=== PATIENT | female | born 1955 | race Caucasian/White ===

== ENCOUNTER → 2018-07-05 | Outpatient (CLI) | payer BC ==
[~2018-07-05] MED LIST: ATIVAN0.5 MG PO; CELEXA20 MG PO; COLACE100 MG PO; KEFLEX500 M1 PO; NORCO 5-325 TA1 EACH PO; ONDANSETRON HCL4 M2 PO; SENOKOT-S1 TA1 PO; VALIUM5 MG PO
== END ==
LOC: NUC 09:49
DX: M85.89 Other specified disorders of bone density and structure, multiple sites (principal); M81.8 Other osteoporosis without current pathological fracture; T38.6X5A Adverse effect of antigonadotrophins, antiestrogens, antiandrogens, not elsewhere classified, initial encounter; Z78.0 Asymptomatic menopausal state

== ENCOUNTER 2019-10-29 14:48 | Emergency (ER) | payer OTHER, MEDICARE ==
[~2019-10-29] VITALS: Ht 160 cm; Wt 72.6 kg
[2019-10-29 16:37] VITALS: BP 132/83
== END 2019-10-29 16:38 | disposition home or self-care (01) ==
LOC: ER 14:48
DX: L76.22 Postprocedural hemorrhage of skin and subcutaneous tissue following other procedure (principal); L76.34 Postprocedural seroma of skin and subcutaneous tissue following other procedure; Z88.8 Allergy status to other drugs, medicaments and biological substances; Z98.890 Other specified postprocedural states; Z85.3 Personal history of malignant neoplasm of breast

== ENCOUNTER 2020-07-09 10:40 | Observation (INO) | payer OTHER, MEDICARE ==
[2020-06-30 11:18] LABS: HEMATOCRIT 40.7 % (37.0-47.0); HEMOGLOBIN 13.7 gm/dL (12.0-15.0); MCH 31.3 pg (26.0-34.0); MCHC 33.7 g/dL (28.0-37.0); MCV 92.9 fL (80.0-100.0); RBC 4.38 mil/uL (4.20-5.00); RDW 13.9 % (10.5-14.5); WBC 4.9 thou/uL (4.0-11.0)
[2020-06-30 11:20] LABS: URINE BILIRUBIN NEGATIVE (Negative); URINE BLOOD TRACE (Negative); URINE CLARITY CLEAR; URINE COLOR YELLOW; URINE GLUCOSE-RANDOM* NEGATIVE (Negative); URINE KETONES NEGATIVE (Negative); URINE LEUKOCYTES-REFLEX NEGATIVE (Negative); URINE NITRITE-REFLEX NEGATIVE (Negative); URINE PROTEIN (DIPSTICK) NEGATIVE (Negative); URINE SPECIFIC GRAVITY <= 1.005 (1.005-1.035); URINE UROBILINOGEN 0.2 E.U./dl (0.2-1.0)
[2020-06-30 11:21] LABS: ALBUMIN 4.1 g/dL (3.4-5.0); CALCIUM 9.1 mg/dL (8.5-10.1); CREATININE 0.8 mg/dL (0.6-1.0); POTASSIUM 4.4 mmol/L (3.5-5.1)
[2020-06-30 11:27] LABS: PROTIME 9.8 Seconds (9.3-11.4)
--- NOTE | 2020-06-30 14:27 | EKG ---
[facility] [place] [address] ELECTROCARDIOGRAM REPORT Name: EVELYN CASTILLO Room #: PRE [facility]..#: [id number] Admission: Attend Phys: Tomi Roy MD Discharge: Date of : 53 Report #: [id number] THIS REPORT FOR: cc: Anay Wu MD, Nora P. MD Couchonnal, Luis F. MD ~ THIS REPORT FOR: //name// [facility] Test Date: 2020-06-30 Test Time: 10:28:49 Pat Name: EVELYN CASTILLO Department: Room: Gender: F Farm Equipment Service Technician: AMBROCIO : 1955 Requested By: Tomi Roy Order Number: [id number] MD: Low Lepe Measurements Intervals [place] Rate: 67 P: 28 FL: 155 QRS: -23 QRSD: 92 T: 15 QT: 423 QTc: 447 Interpretive Statements Sinus rhythm Borderline left axis deviation Compared to ECG 05/21/2014 10:50:40 No significant changes Electronically Signed On 06-30-2020 14:27:05 CDT by Low Lepe [email or web address] <ELECTRONICALLY SIGNED> By: Low Lepe MD 06/30/20 1427 1028 1028 Low Lepe MD /EPI
[~2020-07-09] VITALS: Ht 160 cm; Wt 73.5 kg
[~2020-07-09 10:40] MED LIST changes: +ESCITALOPRAM OX10 MG PO; +MELOXICAM15 MG PO; +ZOLPIDEM TARTRA10 MG PO
[2020-07-09 11:30] VITALS: BP 134/80
[2020-07-09] MEDS ORDERED: MUPIROCIN22 GM (18:38)
[2020-07-09] MEDS ORDERED: NEURONTIN 300M300 M2 PO (18:40)
[2020-07-09 19:30] VITALS: BP 132/85
[2020-07-10] VITALS (7 sets, daily range): BP systolic 115–126; BP diastolic 64–86
--- NOTE | 2020-07-10 02:51 | NUR ---
NOC: ASSESSED AT START OF SHIFT 1900. PT A NEW POST OP PT FROM PACU @1610. VITAL SIGNS DONE, PT STABLE. ADMISSION DONE AND PT OREINTED TO THE UNIT. IV INTACT AND FLUIDS STARTED. HORACIO DRESSING, POLAR PACK AND DARCIE HOSE IN PLACE. PT UP WITH ASSISTX1 TO THE BATHROOM, AMBULATING WELL. FALL PREC IN PLACE AND CALL LIGHT IN REACH WILL CONT TO MONITOR.
[2020-07-10 06:45] LABS: HEMATOCRIT 34.4 % (37.0-47.0); HEMOGLOBIN 11.5 gm/dL (12.0-15.0); MCH 31.2 pg (26.0-34.0); MCHC 33.3 g/dL (28.0-37.0); MCV 93.6 fL (80.0-100.0); RBC 3.67 mil/uL (4.20-5.00); WBC 10.6 thou/uL (4.0-11.0)
--- NOTE | 2020-07-10 10:11 | NUR ---
PT CARE ASSUMED AT 0700.A&Ox4. PT UP TO THE BATHROOM AND NOW SITTING IN THE RECLINER. PAIN MANAGED WELL WITH PAIN MEDICATION ON BOARD. IV PATENT WITH NO REDNESS OR EDEMA, FLUIDS INFUSING. LATEX ALLERGY,SIGN ON DOOR. FALL PROTOCOL IN PLACE. CALL LIGHT IN REACH. POLARPACK,SCD'S/DARCIE HOSES IN PLACE. PT UP IN TH ERECLINER FOR BREAKFAST AND AWAITING PT. WILL CONTINUE TO MONITOR.
[2020-07-10] MEDS ORDERED: HYDROCODON-ACE1 EAC7 PO (15:51)
[2020-07-10] MEDS ORDERED: MS CONTIN15 MG PO (15:52)
[2020-07-10] MEDS ORDERED: ASPIR 8181 MG PO (15:54)
--- NOTE | 2020-07-10 16:06 | NUR ---
ASSESSMENT: CM REVIEWED CHart and spoke with patient. pt is here due to R TKA. PT REPORTS SHE LIVES IN A HOUSE WITH HER . PT REPORTS BEING FULLY INDEPENDENT WITH ADLS AND AMBULATION. CM SPOKE WITH PHYSICAL THERAPY WHO REPORTS THAT PATIENT WILL NEED A WALKER AT DISCHARGE. CM SPOKE WITH PATIENT WHO HAS NO PREFERENCE OF DME COMPANY. PROVIDER TERI IS ABLE TO PROVIDE WALKER FOR PATIENT AND DELIVERED IT TO HER ROOM. PT REPORTS SHE HAS OUTPATIENT THERAPY ARRANGED WITH [facility] [place]. PT REPORTS NO FURTHER NEEDS FROM CM. PLANS ARE TO DISCHARGE HOME.
--- NOTE | 2020-07-14 15:50 | O ---
[facility] [place] [address] OPERATIVE REPORT Name: EVELYN CASTILLO Room #: 434-P [facility] Brendan Joseph#: [id number] Admission: 07/09/20 Attend Phys: Tomi Roy MD Discharge: 07/10/20 Date of : 53 Report #: [id number] THIS REPORT FOR: cc: Anay Wu MD, Nora P. MD Abraham,Tomi Graf MD ~ CC: Anay Roy DATE OF SERVICE: 07/09/2020 PREOPERATIVE DIAGNOSIS: Right knee osteoarthritis. POSTOPERATIVE DIAGNOSIS: Right knee osteoarthritis. PROCEDURE: Right total knee arthroplasty using Navio robotic assistant corporate secretary. SURGEON: Tomi Roy M.D. HUB CUTTER: None. ANESTHESIA: LMA. IMPLANTS: Lam and Nephew size 5 Journey II BCS Oxinium femur, a size 3 tibia, size 13 constrained polyethylene and size 29 patella. TOURNIQUET TIME: 53 minutes. ESTIMATED BLOOD LOSS: 25 mL. COMPLICATIONS: None. SPECIMENS: None. CONDITION UPON LEAVING THE OPERATING ROOM: Stable. INDICATIONS FOR PROCEDURE: The patient is a 64-year-old female with right knee osteoarthritis. She had failed conservative measures for this and after discussion with her, she elected for right total knee arthroplasty. DESCRIPTION OF PROCEDURE: Risks, benefits, alternatives, complications were discussed in detail with the patient including but not limited to risk of anesthesia, risk of damage to nerves, arteries, blood vessels, risk for infection, bleeding, risk for continued knee pain, need for reoperation. Informed consent was obtained from the patient. Right knee was appropriately marked in the preoperative holding area. IV Ancef was given for preoperative [address] [address] OPERATIVE REPORT Name: EVELYN CASTILLO Room #: 434-P [facility] Brendan Mendoza.#: [id number] Admission: 07/09/20 Attend Phys: Tomi Roy MD Discharge: 07/10/20 Date of : 53 Report #: [id number] antibiotics. Adductor canal block was placed by Anesthesia. She was brought to the operating room and placed in the supine position on the operating room table. LMA anesthesia was induced without complication. Tourniquet was placed on the right thigh. Right lower extremity was prepped and draped in normal sterile fashion. Timeout was performed properly identifying the patient and procedure as well as the instrumentation and implants. All in the operating room were in agreement. Right lower extremity was exsanguinated, tourniquet was inflated. Tourniquet time was 53 minutes. Standard midline approach to the knee was made with 10 blade through the skin. Dissection was taken down sharply to the fascia and deep flaps were developed medially and laterally. Fresh 10 blade was used to make a medial parapatellar arthrotomy and the knee was inspected. There was severe tricompartmental osteoarthritis. ACL and PCL were removed sharply. Reference pins were placed in the femur and the tibia. The knee was digitally mapped using the [employer] robotic system. Intraoperative plan was made and we sized the size 5 femur with a size 3 tibia and a size 10 spacer. After acceptance of the intraoperative plan, the distal femoral cut was made with a Navio bur. Distal femoral cutting block was pinned in place and the chamfer cuts were made. Attention was turned to the tibia. Remainder of the menisci removed with Bovie cautery. Tibial resection guide was pinned in place using the Navio for placement and tibial resection was made. After this, flexion and extension gaps were checked and found to have good balance in flexion and extension both medially and laterally. She did have some laxity laterally throughout range of motion. It was felt we could make up for this with the final implant. Tibia was sized, found to be a size 3. A size 3 tibial trial was placed, pinned and punched. A size 5 femoral trial was placed and a box cut was made. This was then trialed with a size 11 and on to a size 13 polyethylene and the size 13 polyethylene demonstrated good stability medially throughout range of motion; however, laterally, she demonstrated 2-3 mm of laxity. It was felt we could make up for this with a constrained implant. A 9 mm was resected from the posterior surface of the patella and a size 29 patellar trial button was placed. Knee was taken through range of motion, found to be stable, found to have good patellar tracking. Trial components were removed. Bony ends were thoroughly irrigated with normal saline. A final size 3 tibia, size 5 Journey II BCS Oxinium femur and a size 29 patella were cemented in place using standard cementation techniques. While the cement cured, a periarticular injection consisting of morphine, ropivacaine, epinephrine and Toradol was placed around the knee joint capsule. After the cement cured, the tourniquet was deflated. Hemostasis was obtained with Bovie cautery. Final size 13 constrained polyethylene was placed. A gram of vancomycin was placed deep in the joint. Fascia was closed with 0 Vicryl, skin was closed with 2-0 Vicryl, 3-0 Monocryl, Dermabond and a HORACIO dressing was applied. The patient tolerated [facility] [address] [place] [address] OPERATIVE REPORT Name: EVELYN CASTILLO Room #: 434-P [facility] Brendan Joseph#: [id number] Admission: 07/09/20 Attend Phys: Tomi Roy MD Discharge: 07/10/20 Date of : 53 Report #: [id number] this procedure well and went to the recovery room under care of anesthesia postoperatively. <ELECTRONICALLY SIGNED> By: Tomi Roy MD 07/14/20 1550 1742 1819 Tomi Roy MD /nt
== END 2020-07-10 16:51 | disposition home or self-care (01) ==
LOC: TBA 10:40 → OR 10:40 → TBA 10:44 → 4S 16:24 → OR 16:25 → 4S 16:25
PROVIDERS: ADMIT Orthopaedic Surgery; ATTEND Orthopaedic Surgery
DX: Z03.818 Encounter for observation for suspected exposure to other biological agents ruled out (principal); M17.11 Unilateral primary osteoarthritis, right knee; Z79.899 Other long term (current) drug therapy
CPT/HCPCS: 50010; 50101; 50415; 50954; 51130; 51225; 51320; 51412; 53000; 53078; 53365; 54118; 56527; 56528; 57095; 57103; 57110; 57127; 57180; 62110; 62900; 64042; 70005

== ENCOUNTER → 2020-11-19 | Outpatient (CLI) | payer OTHER, MEDICARE ==
[~2020-11-19] MED LIST changes: +ASPIR 8181 MG PO; +HYDROCODON-ACE1 EAC7 PO; +MS CONTIN15 MG PO; +MUPIROCIN22 GM; +NEURONTIN 300M300 M2 PO; +PERCOCET PO; +ZINC50 M2 PO
[2020-11-19 09:06] LABS: HEMATOCRIT 39.6 % (37.0-47.0); HEMOGLOBIN 13.3 gm/dL (12.0-15.0); MCH 30.3 pg (26.0-34.0); MCHC 33.6 g/dL (28.0-37.0); MCV 90.1 fL (80.0-100.0); RBC 4.4 mil/uL (4.20-5.00); RDW 14.1 % (10.5-14.5); WBC 5.3 thou/uL (4.0-11.0)
[2020-11-19 09:07] LABS: URINE BILIRUBIN NEGATIVE (Negative); URINE BLOOD NEGATIVE (Negative); URINE CLARITY CLEAR; URINE COLOR YELLOW; URINE GLUCOSE-RANDOM* NEGATIVE (Negative); URINE KETONES NEGATIVE (Negative); URINE LEUKOCYTES-REFLEX NEGATIVE (Negative); URINE NITRITE-REFLEX NEGATIVE (Negative); URINE PROTEIN (DIPSTICK) NEGATIVE (Negative); URINE UROBILINOGEN 0.2 E.U./dl (0.2-1.0)
[2020-11-19 09:15] LABS: ALBUMIN 3.8 g/dL (3.4-5.0); CALCIUM 9.1 mg/dL (8.5-10.1); CREATININE 0.9 mg/dL (0.6-1.0); POTASSIUM 4.2 mmol/L (3.5-5.1)
[2020-11-19 09:22] LABS: PROTIME 9.8 Seconds (9.3-11.4)
== END ==
LOC: LAB 09:00
PROVIDERS: ATTEND Orthopaedic Surgery
DX: Z01.818 Encounter for other preprocedural examination (principal); M17.12 Unilateral primary osteoarthritis, left knee; Z96.652 Presence of left artificial knee joint

== ENCOUNTER 2020-11-26 12:30 | Observation (INO) | payer OTHER, MEDICARE ==
[2020-11-19 09:06] LABS: HEMATOCRIT 39.6 % (37.0-47.0); HEMOGLOBIN 13.3 gm/dL (12.0-15.0); MCH 30.3 pg (26.0-34.0); MCHC 33.6 g/dL (28.0-37.0); MCV 90.1 fL (80.0-100.0); RBC 4.4 mil/uL (4.20-5.00); RDW 14.1 % (10.5-14.5); WBC 5.3 thou/uL (4.0-11.0)
[2020-11-19 09:07] LABS: URINE BILIRUBIN NEGATIVE (Negative); URINE BLOOD NEGATIVE (Negative); URINE CLARITY CLEAR; URINE COLOR YELLOW; URINE GLUCOSE-RANDOM* NEGATIVE (Negative); URINE KETONES NEGATIVE (Negative); URINE LEUKOCYTES-REFLEX NEGATIVE (Negative); URINE NITRITE-REFLEX NEGATIVE (Negative); URINE PROTEIN (DIPSTICK) NEGATIVE (Negative); URINE UROBILINOGEN 0.2 E.U./dl (0.2-1.0)
[2020-11-19 09:15] LABS: ALBUMIN 3.8 g/dL (3.4-5.0); CALCIUM 9.1 mg/dL (8.5-10.1); CREATININE 0.9 mg/dL (0.6-1.0); POTASSIUM 4.2 mmol/L (3.5-5.1)
[2020-11-19 09:22] LABS: PROTIME 9.8 Seconds (9.3-11.4)
[~2020-11-26] VITALS: Ht 152.4 cm; Wt 72.6 kg
[~2020-11-26 12:30] MED LIST changes: -PERCOCET PO
[2020-11-26 13:39] VITALS: BP 155/86
[2020-11-26 17:51] VITALS: BP 139/84
[2020-11-26 17:52] VITALS: BP 145/86
[2020-11-26 18:10] VITALS: BP 146/87
--- NOTE | 2020-11-26 18:26 | NUR ---
ASSUMED CARE AT 1710. PT IS A&O X4. PT DENIES ANY NAUSEA OR VOMITTING. PT HAS VOIDED ONCE SINCE SHIFT. PT HAS DARCIE/SCD HOSE IN [facility]. HEART AND LUNG SOUNDS ARE REGULAR. PT INFORMED THAT TYPICALLY AFTER SURGERY, HER BLOOD PRESSURE WILL DROP AND SHE FAINT. i WILL NOTE THIS TO THIS LIME KILN OPERATOR TO PASS ALONG THE MESSAGE. THE PT STATES THAT SHE KNOWS WHEN THIS WILL START TO HAPPEN. PT DENIES ANY NUMBNESS OR TINGLING.FALL PRECAUTION. CALL LIGHT WITHIN REACH. IV IS INTACT AND SHOWS NO SIGNS OF REDNESS OR SWELLING. PT WAS GIVEN HYDRO FOR PAIN PT STARTED TO FEEL PAIN. PT IS TOLERATING PAIN WELL. WILL CONTINUE TO MONITOR.
[2020-11-26 19:57] VITALS: BP 135/79
[2020-11-26 23:10] VITALS: BP 135/79
--- NOTE | 2020-11-27 04:27 | NUR ---
ASSUMED CARE OF PT AT 1900. PT IS A/O X4 AND IS UP WITH ASSISTANCE. C/O PAIN LEFT KNEE. PRN PAIN MEDICATION PROVIDED DIRECTED. C/O INSOMNIA. PRN SLEEP MEDICATION GIVEN DIRECTED. VSS. AT THIS TIME PT IS LYING IN BED AND APPEARS TO BE SLEEPING. POLAR PACK IN PLACE. ROQUEG IS C/D/I. SCD'S AND DARCIE HOSE IN PLACE. FALL PRECAUTIONS IMPLEMENTED. WILL CONTINUE TO MONTIOR.
[2020-11-27 06:03] LABS: HEMATOCRIT 33.4 % (37.0-47.0); HEMOGLOBIN 11.1 gm/dL (12.0-15.0); MCH 30.5 pg (26.0-34.0); MCHC 33.1 g/dL (28.0-37.0); MCV 91.9 fL (80.0-100.0); RBC 3.63 mil/uL (4.20-5.00); RDW 14.3 % (10.5-14.5); WBC 9.8 thou/uL (4.0-11.0)
[2020-11-27 08:16] VITALS: BP 119/77
--- NOTE | 2020-11-27 08:34 | NUR ---
ASSESSMENT: CM REVIEWED CHART AND SPOKE WITH PT. PT IS S/P LT KNEE. PT REPORTS LIVING IN A HOUSE WITH HER . PT REPORTS IT IS A SPLIT LEVEL HOME WITH ABOUT 7 STEPS WITH HANDRAILS ON EACH LEVEL. PT REPORTS THAT SHE HAS A CANE AND WALKER AT HOME TO ASSIST WITH AMBULATION. PT REPORTS SHE IS SETTING UP OUTPATIENT THERAPY. CM DISCUSSED ROLE. PT DOES NOT ANTICIPATE HAVING ANY NEEDS AT DISCHARGE. PT IS TO WORK WITH THERAPY TODAY AND POSSIBLE DISCHARGE LATER.
[2020-11-27] MEDS ORDERED: ASPIR 8181 MG PO (10:10)
[2020-11-27] MEDS ORDERED: PERCOCET PO (10:10)
[2020-11-27] MEDS ORDERED: HYDROCODON-ACE1 EAC7 PO (10:10)
[2020-11-27] MEDS ORDERED: NEURONTIN 300M300 M2 PO (10:11)
--- NOTE | 2020-11-27 10:13 | O ---
[facility] [place] [place] [address] OPERATIVE REPORT Name: EVELYN CASTILLO Room #: 439-P [facility] Jake#: [id number] Admission: 11/26/20 Attend Phys: Tomi Roy MD Discharge: Date of : 53 Report #: [id number] THIS REPORT FOR: cc: Anay Wu MD, Nora P. MD Abraham,Tomi Graf MD ~ DATE OF SERVICE: 11/26/2020 PREOPERATIVE DIAGNOSIS: Left knee osteoarthritis. POSTOPERATIVE DIAGNOSIS: Left knee osteoarthritis. PROCEDURE: Left total knee arthroplasty using Navio robotic biology laboratory assistant. SURGEON: Tomi Roy MD. AERODYNAMICS TEACHER: Viridiana Estevez PA-C. INDICATIONS FOR AERODYNAMICS TEACHER: Throughout the case, extensive retraction and manipulation of the knee was required. This was afforded to me by my biology laboratory assistant. ANESTHESIA: LMA with an adductor canal block. IMPLANTS: Lam and Nephew size 5 Journey II BCS Oxinium femur, size 3 tibia, size 12 polyethylene, size 29 patella. TOURNIQUET TIME: 54 minutes. ESTIMATED BLOOD LOSS: 25 mL. COMPLICATIONS: None. SPECIMENS: None. CONDITION UPON LEAVING THE OPERATING ROOM: Stable. INDICATIONS FOR PROCEDURE: The patient is a 65-year-old female with left knee osteoarthritis. She had failed conservative measures for this and after discussion with her, she elected for left total knee arthroplasty. DESCRIPTION OF PROCEDURE: Risks, benefits, alternatives, complications were discussed in detail with the patient including but not limited to risk of anesthesia, risk of damage to nerves, arteries, blood vessels, risk for infection, bleeding, risk for continued knee pain, need for reoperation. Informed consent was obtained from the patient. Left knee was appropriately [facility] [address] [place] [address] OPERATIVE REPORT Name: EVELYN CASTILLO Room #: 439-P [facility] Brendan Joseph#: [id number] Admission: 11/26/20 Attend Phys: Tomi Roy MD Discharge: Date of : 53 Report #: [id number] marked in the preoperative holding area. IV Ancef was given for preoperative antibiotics. She was brought to the operating room and placed in supine position on operating room table. LMA anesthesia was induced without complication. Tourniquet was placed on the left thigh. Left lower extremity was prepped and draped in normal sterile fashion. Timeout was performed properly identifying the patient and procedure as well as the instrumentation and implants. All in the operating room were in agreement. Left lower extremity was exsanguinated, tourniquet was inflated. Tourniquet time was 54 minutes. Standard midline approach to the knee was made with #10 blade through the skin. Dissection was taken down sharply to the fascia and deep flaps were developed medially and laterally. Fresh #10 blade was used to make a medial parapatellar arthrotomy and the knee was inspected. There was severe tricompartmental osteoarthritis. ACL and PCL were removed sharply. Reference pins were placed in the femur and the tibia and the knee was then digitally mapped using [employer] robotic system. Intraoperative plan was made and we sized the size 5 femur and a size 3 tibia and a size 10 spacer. After acceptance of the intraoperative plan, distal femoral cut was made with a Navio bur. Distal femoral cutting block was pinned in place and chamfer cuts were made. Attention was turned to the tibia. Remainder of the menisci removed with Bovie cautery. Tibial resection guide was pinned in place using the Navio for placement. Tibial resection was made. After this, flexion and extension gaps were then checked and found to have good balance in flexion and extension both medially and laterally. Tibia was sized, found to be a size 3. A size 3 tibial trial was placed, pinned and punched. A size 5 femoral trial was placed and the box cut was made. This was then trialed with a size 10 up to a size 12 polyethylene and size 12 polyethylene demonstrated 1-2 millimeter of laxity medially and laterally throughout range of motion of the knee. 9 mm of bone was resected from the posterior surface of the patella and a size 29 patellar trial button was placed. Knee was taken through range of motion, found to be stable, found to have good patellar tracking. Trial components were removed. Bony ends were thoroughly irrigated with normal saline and final size 3 tibia, size 5 Journey II BCS Oxinium femur and a size 29 patella were cemented in place using standard cementation techniques. While the cement cured, a periarticular injection consisting of morphine, ropivacaine, epinephrine, Toradol was placed around the knee joint capsule. After the cement cured, the tourniquet was deflated. Hemostasis was obtained with Bovie cautery. A final size 12 polyethylene was placed. A gram of vancomycin was placed deep in the joint. Fascia was closed with 0 Vicryl, skin was closed with 2-0 Vicryl, 3-0 Monocryl. Dermabond and a HORACIO dressing were applied. The patient tolerated this procedure well and went to recovery room under care of anesthesia postoperatively. <ELECTRONICALLY SIGNED> By: Tomi Roy MD 11/27/20 1013 1651 1736 Tomi Roy MD /nt
[2020-11-27 11:21] VITALS: BP 119/77
[2020-11-27 11:41] VITALS: BP 119/77
== END 2020-11-27 11:51 | disposition home or self-care (01) ==
LOC: OR 12:30 → 4S 17:25 → OR 17:27 → 4S 17:27
PROVIDERS: ADMIT Orthopaedic Surgery; ATTEND Orthopaedic Surgery
DX: M17.12 Unilateral primary osteoarthritis, left knee (principal); M17.11 Unilateral primary osteoarthritis, right knee; Z79.899 Other long term (current) drug therapy
CPT/HCPCS: 27447; S2900; 50010; 50101; 50415; 50954; 51130; 51225; 51320; 52001; 52282; 53000; 53078; 53365; 54118; 56527; 56528; 57095; 57103; 57110; 57127; 57180; 62110; 62900; 64042; 70005

== ENCOUNTER → 2021-10-30 | Outpatient (CLI) | payer OTHER, MEDICARE ==
[~2021-10-30] MED LIST changes: +PERCOCET PO
== END ==
LOC: NUC 10:07
PROVIDERS: ATTEND Family Medicine
DX: M85.88 Other specified disorders of bone density and structure, other site (principal); M81.0 Age-related osteoporosis without current pathological fracture

== ENCOUNTER → 2022-01-18 | Outpatient (CLI) | payer OTHER, MEDICARE ==
[~2022-01-18] MED LIST changes: +LEXAPRO 10 MG T10 M1 PO
== END ==
LOC: LAB 08:27
PROVIDERS: ATTEND Student in an Organized Health Care Education/Training Program
DX: Z20.822 Contact with and (suspected) exposure to COVID-19 (principal)

== ENCOUNTER → 2022-01-19 | Outpatient (CLI) | payer OTHER, MEDICARE ==
[~2022-01-19] VITALS: Ht 157.5 cm; Wt 67.1 kg
--- NOTE | 2022-01-21 14:07 | PATH ---
[facility] [address] [place] [address] PATHOLOGY RPT PROCEDURE Name: EVELYN FALL Room #: REG [facility]..#: [id number] Admission: 01/19/22 Date of : 53 Discharge: Report #: [id number] Path Case #: [id number] [facility] Accession Number: [id number] . 01 Material submitted: . rectum - RECTAL POLYP . 01 Clinical history: . SCREENING COLONOSCOPY RECTAL POLYP, DIVERTICULOSIS, INTERNAL HEMORRHOIDS . 02 Diagnosis: Rectal polyp, polypectomy: - Tubular adenoma. - Negative for high-grade dysplasia or malignancy. (ANK:xiang; 01/20/2022) MBR 01/20/2022 1357 Local . 02 Electronically signed: . Sumaya Barajas MD, Pathologist NPI- [id number] . 01 Gross description: . The specimen is received in formalin, labeled "Evelyn Fall, rectal polyp". Received are 3 segments of pale altamirano tissue ranging in size from 0.2-0.3 cm in maximum dimensions. The specimen is entirely submitted in cassette A1. ([facility]; 01/19/2022) NRI/NRI 01/20/2022 1356 Local . 02 Pathologist provided ICD-10: D12.8 . 02 CPT . 066123 Specimen Comment: A courtesy copy of this report has been sent to [phone] Specimen Comment: [id number] Specimen Comment: Report sent to / DR BAUTISTA Specimen Comment: A duplicate report has been generated due to demographic updates. Performed at: 01 [facility] [address] [facility] [address], [place] [id number] MD Garett Cherry MD Phone: [phone] Performed at: [address] [facility] [address] [place] [address] PATHOLOGY RPT PROCEDURE Name: EVELYN FALL [facility] [id number] Admission: 01/19/22 Date of : 53 Discharge: Report #: [id number] Path Case #: [id number] [address] [place] [id number] MD Sumaya Barajas MD Phone: [phone]
== END | disposition home or self-care (01) ==
LOC: GI 07:21
PROVIDERS: ATTEND Internal Medicine Gastroenterology
DX: Z12.11 Encounter for screening for malignant neoplasm of colon (principal); D12.8 Benign neoplasm of rectum; K57.30 Diverticulosis of large intestine without perforation or abscess without bleeding; K64.8 Other hemorrhoids; F32.9 Major depressive disorder, single episode, unspecified; F41.9 Anxiety disorder, unspecified; Z96.651 Presence of right artificial knee joint; Z98.890 Other specified postprocedural states; Z79.899 Other long term (current) drug therapy; Z85.3 Personal history of malignant neoplasm of breast; Z88.8 Allergy status to other drugs, medicaments and biological substances
CPT/HCPCS: 62110; 62900